=== PATIENT | male | born 1995 | race Caucasian/White ===

== ENCOUNTER 2017-11-03 10:03 | Inpatient (IN) | payer MEDICAID, SELFPAY ==
[~2017-11-03] VITALS: Ht 177.8 cm; Wt 88.0 kg
[2017-11-03 10:34] LABS: MEAN CORPUSCULAR HEMOGLOBIN 32.4 pg (27.0-33.0); MEAN CORPUSCULAR HGB CONC 35.7 g/dl (32.0-36.5); MEAN CORPUSCULAR VOLUME 90.9 fl (80.0-96.0); PLATELET COUNT, AUTOMATED 317 10^3/uL (150-450); RED CELL DISTRIBUTION WIDTH 13.1 % (11.5-14.5)
[2017-11-03 10:51] LABS: METHADONE URINE NEGATIVE (NEGATIVE)
[2017-11-03 11:02] LABS: ALBUMIN 4.9 GM/DL (3.2-5.2); ALBUMIN/GLOBULIN RATIO 1.48 (1.00-1.93); ALKALINE PHOSPHATASE 80 U/L (45-117); ALT/SGPT 29 U/L (12-78); ANION GAP 12 MEQ/L (8-16); AST/SGOT 21 U/L (7-37); BILIRUBIN,DIRECT 0.2 MG/DL (0.0-0.2); BILIRUBIN,TOTAL 0.7 MG/DL (0.2-1.0); BLOOD UREA NITROGEN 14 MG/DL (7-18); CARBON DIOXIDE LEVEL 24 MEQ/L (21-32); CHLORIDE LEVEL 102 MEQ/L (98-107); CREATININE FOR GFR 0.96 MG/DL (0.70-1.30); GLOMERULAR FILTRATION RATE > 60.0 (>60); GLUCOSE, FASTING 83 MG/DL (70-105); POTASSIUM SERUM 3.8 MEQ/L (3.5-5.1); SODIUM LEVEL 138 MEQ/L (136-145); TOTAL PROTEIN 8.2 GM/DL (6.4-8.2)
[2017-11-03] MEDS ORDERED: ACETAMINOPHEN TAB 650MG DOSE (2X325MG) PO PRN (15:15)
[2017-11-03] MEDS ORDERED: traZODone 50 MG TAB PO PRN (15:15)
[2017-11-03] MEDS ORDERED: MOM 30ML SUSPENSION UDC PO PRN (15:15)
[2017-11-03] MEDS ORDERED: MAALOX 30 ML SUSP *UDC PO PRN (15:15)
[2017-11-03] MEDS ORDERED: LORazepam 1 MG TAB PO STA (15:47)
[2017-11-03 17:45] VITALS: BP 130/89
[2017-11-03] MEDS: NICOTINE 21MG/24HR 1 EA TRANSDERMAL TD SCH (18:45)
[2017-11-03 18:58] VITALS: BP 130/89
[2017-11-04 06:14] VITALS: BP 116/55
[2017-11-04] MEDS: NICOTINE 21MG/24HR 1 EA TRANSDERMAL TD SCH (08:16)
[2017-11-04] MEDS ORDERED: TRAZO50TA PO (13:21)
--- NOTE | 2017-11-04 13:26 | MHHPEPDOC ---
[facility] History & Physical History and Physical DATE OF ADMISSION: Nov 03, 2017 at 15:04 LEGAL STATUS AT ADMISSION: 9.39 CHIEF COMPLAINT: SI HISTORY OF PRESENT ILLNESS: Patient is a 22-year-old male, no PMH, no PPH, no prior psychiatric hospitalization, no prior SA, presents for SA. Patient reports feeling depressed for several months after having to leave his [employer] job, as it was making him sick due to inhaling bad air (sawdust, carbon monoxide). Patient reports poor sleep for several months, but still over 5 hours per night. Denies hopelessness, anhedonia, worthlessness. Denies manic symptoms and AVH. States his mood worsened several days ago after breaking up with his gf of 6 years. Patient made suicidal comments to his father, who became concerned. Patent told the father to call someone so that he can get some help. Father called the police who brought him to the ED. Patient states he only intended to seek outpatient help, and did not mean to be brought inpatient. States he made those SI but had no intent and plan. Denies current SI intent and plan. States he wishes to go home for [employer]. Expressed that he wanted to find a job soon. Has not seen an outpatient psychiatrist before, no prior psychiatric medications. Per phone conversation: father states that he seemed depressed over the last several weeks. Father denies ever seeing him hurt himself or take drugs. States that the patient needs help, but that the father did not in particular intend for the patient to be hospitalized. After several discussions between father and this provider, and father and the patient, the father expressed that he would like to take him home. ALLERGIES: denies FAMILY PSYCHIATRIC HISTORY: denies SOCIAL HISTORY: Born in [place], grew up with father, got when he was 7, 4 siblings, 1 step sib, finished HS, worked in [employer], single, no children. Has mild learning disability in reading and math but had Bs and As in HS. Denies physical and sexual abuse. SUBSTANCE ABUSE HISTORY: denies ETOH, denies drug abuse, 1/5 ppd PAST MEDICAL/SURGICAL HISTORY: denies medical, had surgery on R hand due to accident at work VITAL SIGNS: Please see below. MENTAL STATUS EXAMINATION: Behavior: cooperative, calm, related Speech: normal RRVT Thought processes: linear Thought content: appropriate to conversation Judgment: fair Insight: fair Orientation: aaox3 Mood: "depressed" Affect: dysthymic, reactive DIAGNOSES: 1. adjustment disorder ASSESSMENT: Patient is depressed, but without SI intent and plan. He does not appear to be at acute risk for suicide. He is motivated to seek outpatient help and to find a job, demonstrating future orientation. PROBLEM LIST: 1. SI 2. depression 3. poor sleep INITIAL TREATMENT PLAN: 1. Patient was admitted on a 9. 2. Complete history was obtained. 3. With patients permission, family will be contacted and database will be expanded. 4. Patients medication regimen will be reviewed and changed accordingly. 5. Patient will be provided with protected environment. 6. Patient will be treated with individual, group, and milieu therapies. 7. Patient will receive supportive psych-education. 8. Discharge planning will commence immediately. 9. Outpatient follow-up treatment will be strongly recommended. 10. The initial treatment plan will focus initially on: * Depression. * Risk for suicide. * Substance abuse. - trazodone 50 mg qhs PRN for sleep - Will discharge patient today. ESTIMATED LENGTH OF STAY: 3 DAYS. TIME SPENT COUNSELING AND COORDINATING INITIAL CARE: 25 minutes. Vital Signs Vital Signs Date Time Temp Pulse Resp B/P (MAP) Pulse Ox O2 Delivery O2 Flow Rate FiO2 11/04/17 06:14 97.7 81 18 116/55 (75) 11/03/17 17:45 99 Room Air Medications Scheduled PRN Trazodone HCl (Trazodone HCl) 50 Mg Tab, 50 MG PO QHSP PRN for INSOMNIA Allergies Coded Allergies: No Known Allergies (Unverified , 11/03/17) ISACC ULLOA MD Nov 04, 2017 11:28
--- NOTE | 2017-11-04 13:32 | MHDSPDOC ---
[facility] Discharge Summary Discharge Summary DATE OF ADMISSION: Nov 03, 2017 at 15:04 DATE OF DISCHARGE: 11/04/17 DISCHARGE DIAGNOSES: 1. adjustment disorder REASON FOR ADMISSION: 22-year-old male, no PMH, no PPH, no prior psychiatric hospitalization, no prior SA, presents for SA. 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 Patient reports poor sleep for several months, but still over 5 hours per night. Denies hopelessness, anhedonia, worthlessness. Denies manic symptoms and AVH. States his mood worsened several days ago after breaking up with his gf of 6 years. Patient made suicidal comments to his father, who became concerned. Patent told the father to call someone so that he can get some help. Father called the police who brought him to the ED. Patient states he only intended to seek outpatient help, and did not mean to be brought inpatient. States he made those SI but had no intent and plan. Denies current SI intent and plan. States he wishes to go home for [employer]. Expressed that he wanted to find a job soon. Has not seen an outpatient psychiatrist before, no prior psychiatric medications. Per phone conversation: father states that he seemed depressed over the last several weeks. Father denies ever seeing him hurt himself or take drugs. States that the patient needs help, but that the father did not in particular intend for the patient to be hospitalized. After several discussions between father and this provider, and father and the patient, the father expressed that he would like to take him home. CONSULTANTS INVOLVED: na TREATMENT AND PROGRESS ON THE UNIT : Patient arrived in the last afternoon/ evening of 11/03/17. He was calm on the unit. He received a trazodone 50 mg for sleep, which allowed him to sleep 8 hours. The next morning, the patient described to this provider the circumstances that brought him to the hospital, emphasizing that he only wished to seek outpatient help and that he never meant to be detained in the ED or the psych floor. He states that while he had depressive, suicidal ideations, he never had any intent or plan, and he was motivated to seek outpatient help. Patient was future oriented on interview, talking about how he wished to find a new job and wished to be home with his family for [employer]. Spoke with the patient's father, who stated that it was not his intention for the patient to be hospitalized, and who expressed that he wished for the patient to be brought home. DISCHARGE ASSESSMENT: by discharge, patient denied depression, was reasonable, future oriented, without SI intent and plan, and motivated to seek outpatient treatment. 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 Staff will call pt 11/05/17 to set him up with outpt appt. The amount of time spent in the coordination of care for this patient was approximately 25 minutes. Vital Signs/I&Os Vital Signs Date Time Temp Pulse Resp B/P (MAP) Pulse Ox O2 Delivery O2 Flow Rate FiO2 11/04/17 06:14 97.7 81 18 116/55 (75) 11/03/17 17:45 99 Room Air Medications Scheduled PRN Trazodone HCl (Trazodone HCl) 50 Mg Tab, 50 MG PO QHSP PRN for INSOMNIA for 7 Days, #7 Allergies Coded Allergies: No Known Allergies (Unverified , 11/03/17) ISACC ULLOA MD Nov 04, 2017 13:32
== END 2017-11-04 16:27 | disposition home or self-care (01) | DRG 755 ==
LOC: M ED 10:03 → M ED INP 15:04 → M PSY 17:36
PROVIDERS: ADMIT Psychiatry & Neurology Psychiatry; ATTEND Psychiatry & Neurology Psychiatry
DX: F43.20 Adjustment disorder, unspecified (principal); G47.00 Insomnia, unspecified